=== PATIENT | female | born 1990 | race Hispanic/Latino ===

== ENCOUNTER 2024-01-01 15:49 | Emergency (ER) | payer OTHER ==
[~2024-01-01] VITALS: Ht 172.7 cm; Wt 136.1 kg
[2024-01-01] MEDS: 0.9%NACL 1000ML 1,000 ML IV STA (16:42)
[2024-01-01] MEDS: morPHINE 2 MG SYG IVP STA (16:43)
[2024-01-01] MEDS: ondanSETRON 4MG INJ IVP STA (16:43)
[2024-01-01 16:57] LABS: BASOPHILS # (AUTO) 0.03 K/uL (0.00-0.20); BASOPHILS % (AUTO) 0.4 % (0.0-5.0); EOSINOPHILS # (AUTO) 0.03 K/uL (0.00-0.70); EOSINOPHILS % (AUTO) 0.4 % (0.0-8.0); HEMATOCRIT 39.4 % (36-48); IMMATURE GRANULOCYTE ABSOLUTE 0.03 K/uL (0-1); LYMPHOCYTES # (AUTO) 0.9 K/uL (1.0-4.8); LYMPHOCYTES % (AUTO) 12.2 % (21.0-51.0); MEAN CORPUSCULAR HEMOGLOBIN 25.4 pg (27.0-33.0); MEAN CORPUSCULAR HGB CONC 32.5 g/dL (32.0-36.0); MEAN CORPUSCULAR VOLUME 78.3 fL (79-99); MONOCYTES # (AUTO) 0.3 K/uL (0.1-1.0); MONOCYTES % (AUTO) 3.7 % (3.0-13.0); NEUTROPHILS # (AUTO) 6.1 K/uL (1.8-7.7); NEUTROPHILS % (AUTO) 82.9 % (40.0-77.0); PLATELET COUNT (AUTO) 257 K/uL (130-400); RED BLOOD CELL COUNT(AUTO) 5.03 MIL/uL (4.00-5.50); RED CELL DISTRIBUTION WIDTH 15.6 % (11.0-15.5); WHITE BLOOD COUNT (AUTO) 7.3 K/uL (4.8-10.8)
[2024-01-01 17:03] LABS: CREATININE 0.8 mg/dL (0.5-1.0)
[2024-01-01] MEDS ORDERED: IOHEXOL 350 MG/ML 100ML INFUS..BTL IV ONE (17:11)
[2024-01-01 17:14] LABS: ALBUMIN 3.4 g/dL (3.5-5.0); BILIRUBIN,TOTAL 0.3 mg/dL (0.2-1.0); TOTAL PROTEIN, SERUM 7.6 g/dL (6.0-8.3)
[2024-01-01 18:45] LABS: APPEARANCE,URINE CLOUDY (CLEAR); BILIRUBIN,URINE NEGATIVE (NEGATIVE); COLOR,URINE YELLOW (YELLOW); GLUCOSE, URINE (UA) NEGATIVE (NEGATIVE); KETONES,URINE 10 mg/dL (NEGATIVE); LEUKOCYTE ESTERASE ,URINE NEGATIVE Leu/uL (NEGATIVE); NITRATE,URINE NEGATIVE (NEGATIVE); PH,URINE 5.5 (5.0-8.0); PROTEIN,URINE 20 mg/dL (NEGATIVE); UROBILINOGEN,URINE 0.2 mg/dL (0.2-1.0)
[2024-01-01 18:46] LABS: ADD UA MICROSCOPIC YES
[2024-01-01 18:53] LABS: BACTERIA,URINE FEW /HPF (None Seen); MUCUS,URINE MOD LPF (None Seen); SQUAMOUS EPITHELIAL CELL,UR MANY /HPF (0-2)
[2024-01-01] MEDS ORDERED: KETO10TA2 PO (19:10)
[2024-01-01] MEDS ORDERED: ONDA-243 PO (19:10)
[2024-01-01] MEDS: ketOROlac 15MG/ML VIAL (15MG/ML) IV STA (19:19)
[2024-01-01 19:24] VITALS: BP 136/78; PULSE 78; RESP 16; TEMP 98.3; O2SAT 98
== END 2024-01-01 19:30 | disposition home or self-care (01) ==
LOC: EDH 15:49
DX: R10.2 Pelvic and perineal pain (principal); D27.1 Benign neoplasm of left ovary; Z88.1 Allergy status to other antibiotic agents; Z88.5 Allergy status to narcotic agent
CPT/HCPCS: 99285; 74177; 96374; 96375; 96361; 80053; 84702; 85025; 81001; 36415; J2270; J7030; J2405; J1885; Q9967

== ENCOUNTER 2024-07-10 13:49 | Emergency (ER) | payer OTHER ==
[~2024-07-10] VITALS: Ht 172.7 cm; Wt 129.3 kg
[~2024-07-10 13:49] MED LIST: KETO10TA2 PO; ONDA-243 PO
[2024-07-10 15:15] VITALS: BP 145/65; PULSE 70; RESP 18; TEMP 97.9; O2SAT 99
[2024-07-10] MEDS: cefTRIAXone 1G VIAL IM ONE (15:15)
[2024-07-10 15:39] LABS: ADD UA MICROSCOPIC YES; APPEARANCE,URINE TURBID (CLEAR); BILIRUBIN,URINE 1 mg/dL (NEGATIVE); COLOR,URINE DARK-ORANGE (YELLOW); GLUCOSE, URINE (UA) NEGATIVE (NEGATIVE); KETONES,URINE NEGATIVE (NEGATIVE); LEUKOCYTE ESTERASE ,URINE 500 Leu/uL (NEGATIVE); NITRATE,URINE 1+ (NEGATIVE); OCCULT BLOOD,URINE MODERATE (NEGATIVE); PROTEIN,URINE 70 mg/dL (NEGATIVE); UROBILINOGEN,URINE 3 mg/dL (0.2-1.0)
[2024-07-10 15:41] LABS: HCG,QUALITATIVE URINE NEGATIVE (NEGATIVE)
[2024-07-10] MEDS ORDERED: MACR100 PO (15:43)
[2024-07-10 15:44] LABS: BACTERIA,URINE RARE /HPF (None Seen); RBC,URINE 26-50 /HPF (0-1); SQUAMOUS EPITHELIAL CELL,UR RARE /HPF (0-2); WBC CLUMP RARE /HPF (0-1); WBC,URINE >100 /HPF (0-1); YEAST,URINE BUDDING RARE /HPF (None Seen)
--- NOTE | 2024-07-10 15:44 | ERN ---
General Chief Complaint: Blood in Urine: Stated Complaint: UTI Time Seen by MD: 13:54 Time Seen by Midlevel: 13:54 Source: patient History of Present Illness Initial Comments The patient is a 34-year-old female with no significant past medical history presenting to the emergency department for evaluation of dysuria and hematuria. She has been self treating at home with azo. Denies any fever, chills, flank pain, or any other symptoms at this time. Allergies: Coded Allergies: doxycycline (Unverified Allergy, Unknown, 01/01/24) hydromorphone (Unverified Allergy, Unknown, 01/01/24) Home Meds Active Scripts Nitrofurantoin/Nitrofuran Mac (Macrobid) 100 Mg Cap, 1 CAP PO BID for 7 Days, #14 CAP 0 Refills Prov:MIKIE CARTER 07/10/24 Ondansetron (Ondansetron Odt) 4 Mg Tab.rapdis, 4 MG PO Q6HPRN PRN for nausea for 3 Days, #12 TAB 0 Refills Prov:KANCHAN WHITFIELD CLINICAL RESEARCH TECHNICIAN 01/01/24 Ketorolac Tromethamine (Ketorolac Tromethamine) 10 Mg Tablet, 1 TAB PO Q6HPRN PRN for pain for 5 Days, #20 TAB 0 Refills Prov:KANCHAN WHITFIELD CLINICAL RESEARCH TECHNICIAN 01/01/24 Past Medical History Past Medical History: UTI Past Surgical History: Surgical History Other: BACK SX ROS Dictation CONSTITUTIONAL: Negative except for HPI HEAD/FACE: Negative except for HPI EENT: Negative except for HPI RESPIRATORY: Negative except for HPI GASTROINTESTINAL/ABDOMINAL: Negative except for HPI GENITOURINARY: Negative except for HPI MUSCULOSKELETAL: Negative except for HPI INTEGUMENTARY: Negative except for HPI NEUROLOGICAL/PSYCH: Negative except for HPI HEMATOLOGIC/LYMPHATIC: Negative except for HPI All Systems Negative, Except as noted above. 13 point review of systems assessed and all negative except for above. Physical Exam Physical Exam Dictation Vital Signs reviewed General Appearance: Alert, oriented x 3, no acute distress, well developed, nourished. Head and Face: non-traumatic. Eyes: PERRL, pink conjunctivas, eyelid no trauma, anterior chamber with arcus senilis. Ears: Pinnas intact and no signs of trauma or erythema ear canals clear and no discharge TM no erythema Nose: No discharge, no bleeding. Oropharynx: Mouth normal, tongue pink, pharynx clear,no erythema, tonsils no exudates, no abscesses noted, mucous membrane moist Neck: Supple, non-tender, no thyromegaly, no masses, no JVD, no bruits Breast:Deferred Chest:No tenderness, no crepitus, no paradoxical movement, no retractions Lungs:Clear, well-ventilated, symmetric, no rales, no wheezing, no rhonchi, no stridor, good breath sounds bilaterally Heart: Regular rate, regular rhythm, no murmur, no gallops Vascular: no peripheral edema, Abdomen: Soft, positive bowel sounds, nondistended, no guarding, nontender, no rebound, no masses no hepatomegaly, no splenomegaly, no Harding's sign, no hernias. Rectal: Deferred Genital: Deferred Neurological: Normal speech, motor function intact, sensory function intact Musculoskeletal: Neck nontender, full range of motion, back nontender, full range of motion, Extremities: nontender, full range of motion Skin: Color pink, dry, no turgor, no rash, no lacerations, no abrasions, no contusions. Lymphatic: Deferred Results Laboratory and Microbiology Lab and Micro Result Laboratory Tests Test 07/10/24 13:50 Urine Color DARK-ORANGE (YELLOW) Urine Appearance TURBID (CLEAR) Urine pH 6.0 (5.0-8.0) Urine Specific [place] 1.019 (1.001-1.031) Urine Protein 70 mg/dL (NEGATIVE) H Urine Glucose (UA) NEGATIVE mg/dL (NEGATIVE) Urine Ketones NEGATIVE mg/dL (NEGATIVE) Urine Occult Blood MODERATE (NEGATIVE) H Urine Nitrate 1+ (NEGATIVE) H Urine Bilirubin 1 mg/dL (NEGATIVE) H Urine Urobilinogen 3 mg/dL (0.2-1.0) H Urine Leukocyte Esterase 500 Ad/uL (NEGATIVE) H Urine RBC 26-50 /HPF (0-1) H Urine WBC >100 /HPF (0-1) H Urine WBC Clumps (Auto) RARE /HPF (0-1) Urine Squamous Epithelial Cells RARE /HPF (0-2) Urine Bacteria RARE /HPF (None Seen) Urine Yeast RARE /HPF (None Seen) Urine HCG, Qualitative NEGATIVE (NEGATIVE) Labs Reviewed?: Yes MDM MDM: Differential diagnosis: Urinary tract infection, acute cystitis, pyelonephritis There are no social concerns with this patient. Prescription drug management Prescriptions will include: Macrobid Medical management and examination interpretation discussions were had by me with other qualified healthcare professionals as indicated for the patient's car e. ED Course Orders Procedure Category Date Status Time Urinalysis Profile LAB 07/10/24 Complete 14:06 ,Urine Test LAB 07/10/24 Complete 14:06 Ceftriaxone 1g Vial PHA 07/10/24 Complete (Rocephine 1g Inj) 14:30 Culture Urine RUBEN 07/10/24 Logged 15:40 Current Medications Medications (Trade) Dose Ordered Sig/Tod Route PRN Reason Start Time Stop Time Status Last Admin Dose Admin Ceftriaxone Sodium (ROCEphine 1G INJ) 1 gm ONCE ONCE IM 07/10/24 14:30 07/10/24 14:31 DC 07/10/24 15:15 Vital Signs Date Time Temp Pulse Resp B/P (MAP) Pulse Ox O2 Delivery O2 Flow Rate FiO2 07/10/24 15:15 97.9 70 18 145/65 99 Room Air* 0 21 07/10/24 14:30 98.1 76 18 153/90 97 Room Air* 0 21 07/10/24 13:51 98.1 76 16 153/90 98 Room Air 0 DX & DISP Disposition: Discharge Departure Impression: Primary Impression: Urinary tract infection Condition: Stable Scripts Nitrofurantoin/Nitrofuran Mac (Macrobid) 100 Mg Cap 1 CAP PO BID for 7 Days, #14 CAP 0 Refills Prov: MIKIE CARTER 07/10/24 Referrals: TABATHA FELDER MD (PCP) I have reviewed the case, and I agree with, Diagnosis and Plan I performed the substantive portion of the visit. I have reviewed and personally made and approve the management plan that is documented in the note by myself or the LAVINIA. I acknowledge for responsibility for the patient's management plan. MIKIE CARTER Jul 10, 2024 15:44
== END 2024-07-10 15:55 | disposition home or self-care (01) ==
LOC: EDH 13:49
DX: N39.0 Urinary tract infection, site not specified (principal); Z79.899 Other long term (current) drug therapy; Z88.1 Allergy status to other antibiotic agents; Z88.5 Allergy status to narcotic agent; Z98.890 Other specified postprocedural states
CPT/HCPCS: 99283; 87086; 81001; 81025; 96372; J0696 ×2